=== PATIENT | male | born 1965 | race Caucasian/White ===

== ENCOUNTER 2016-06-25 13:31 | Emergency (ER) | payer MEDICAID ==
[~2016-06-25] VITALS: Ht 170.2 cm; Wt 70.0 kg
[~2016-06-25 13:31] MED LIST: ALBU8.5H5 INH; ASPI-496 PO; LEVO750T26 PO; PRED5TAB PO; TIOT18CA INH
[2016-06-25 13:47] LABS: HEMOGLOBIN 15.7 g/dL (13.7-18.0)
[2016-06-25] MEDS ORDERED: ALBUTEROL/IPRATROPIUM 2.5MG/0.5MG, 3 ML ONE (13:51)
[2016-06-25] MEDS ORDERED: methylPREDNISolone SOD SUCC 125 MG/2 ML ONE (13:56)
[2016-06-25] MEDS ORDERED: methylPREDNISolone SOD SUCC 125 MG/2 ML IVP ONE (14:00)
[2016-06-25] MEDS ORDERED: ALBUTEROL/IPRATROPIUM 2.5MG/0.5MG, 3 ML NPPB ONE (14:00)
[2016-06-25] MEDS ORDERED: SODIUM CHLORIDE FLUSH 10ML SYR IVF ONE (14:00)
[2016-06-25 14:01] LABS: ASPARTATE AMINO TRANSFERASE 21 U/L (15-37); BLOOD UREA NITROGEN 9 mg/dL (7-18)
[2016-06-25 15:28] VITALS: BP 129/73
== END 2016-06-25 15:31 | disposition home or self-care (01) ==
LOC: ED 14:13
DX: J44.1 Chronic obstructive pulmonary disease with (acute) exacerbation (principal); J18.1 Lobar pneumonia, unspecified organism; F17.210 Nicotine dependence, cigarettes, uncomplicated; J45.909 Unspecified asthma, uncomplicated; R42 Dizziness and giddiness
CPT/HCPCS: 36415; 71010; 80053; 85025; 94640; 96374; 99285; J2930; J7620

== ENCOUNTER 2016-10-12 07:33 | Emergency (ER) | payer MEDICAID ==
[~2016-10-12] VITALS: Ht 170.2 cm; Wt 64.5 kg
[2016-10-12] MEDS ORDERED: ALBUTEROL/IPRATROPIUM 2.5MG/0.5MG, 3 ML NPPB ONE (08:00)
[2016-10-12] MEDS ORDERED: ALBUTEROL/IPRATROPIUM 2.5MG/0.5MG, 3 ML ONE (08:22)
[2016-10-12 08:34] VITALS: BP 116/82
== END 2016-10-12 08:44 | disposition home or self-care (01) ==
LOC: ED 08:15
DX: J44.1 Chronic obstructive pulmonary disease with (acute) exacerbation (principal); J45.909 Unspecified asthma, uncomplicated; Z88.0 Allergy status to penicillin
CPT/HCPCS: 93005; 94640; 99283; J7512; J7620

== ENCOUNTER 2017-05-01 09:56 | Emergency (ER) | payer MEDICAID ==
[~2017-05-01] VITALS: Ht 167.6 cm; Wt 73.0 kg
[2017-05-01] MEDS ORDERED: SODIUM CHLORIDE 0.9% 1,000ML IVBOLUS ONE (10:30)
[2017-05-01] MEDS ORDERED: SODIUM CHLORIDE FLUSH 10ML SYR IVF ONE (10:30)
[2017-05-01] MEDS ORDERED: MORPHINE SULFATE 4 MG/ML, 1ML IV PRN (10:30)
[2017-05-01] MEDS ORDERED: DIPH,PERTUSS(ACELL),TET VAC/PF 0.5 ML IM-VACC ONE ×2 (10:30→10:41)
[2017-05-01] MEDS ORDERED: ONDANSETRON 2MG/ML, 2ML IVPush ONE (10:30)
[2017-05-01] MEDS ORDERED: ONDANSETRON 2MG/ML, 2ML ONE (10:41)
[2017-05-01] MEDS ORDERED: MORPHINE SULFATE 4 MG/ML, 1ML ONE (10:41)
[2017-05-01] MEDS ORDERED: VANCOMYCIN PER PHARMACY MC ONE (11:00)
[2017-05-01] MEDS ORDERED: FLUT1AER INH (11:22)
[2017-05-01 11:35] LABS: BASOPHILS # (AUTO) 0.05 x10^3/uL (0-0.1); BASOPHILS % (AUTO) 1 % (0-1); EOSINOPHILS # (AUTO) 0.65 x10^3/uL (0-0.4); EOSINOPHILS % (AUTO) 8 % (1-7); HCT (SEDRATE) 47.2 % (39.2-51.8); LYMPHOCYTES # (AUTO) 1.74 x10^3/uL (1-3.4); LYMPHOCYTES % (AUTO) 21 % (22-44); MD NO; MEAN CORPUSCULAR HEMOGLOBIN 30.3 pg (27.5-34.5); MEAN CORPUSCULAR HGB CONC 32.6 g/dL (33.2-36.2); MEAN CORPUSCULAR VOLUME 92.8 fL (81-97); MONOCYTES # (AUTO) 1.22 x10^3/uL (0.2-0.8); MONOCYTES % (AUTO) 15 % (2-9); NEUTROPHILS # (AUTO) 4.52 x10^3/uL (1.8-6.8); NEUTROPHILS % (AUTO) 55 % (42-75); PLATELET COUNT 350 x10^3/uL (130-400); RED BLOOD COUNT 5.09 x10^6/uL (4.38-5.82); RED CELL DISTRIBUTION WIDTH 13.6 % (9.4-14.8)
[2017-05-01 11:43] LABS: ALBUMIN 3.2 g/dL (3.4-5.0); ANION GAP 6 mmol/L (5-15); CHLORIDE 104 mmol/L (98-107); CREATININE 0.77 mg/dL (0.7-1.3)
[2017-05-01] MEDS ORDERED: VANCOMYCIN 1,500 MG in SODIUM CHLORIDE 0.9% 250 ML IV ONE (12:00)
[2017-05-01 12:01] LABS: CULTURE INDICATED? NO; MICROSCOPIC NOT IND
[2017-05-01 12:09] LABS: SEDIMENTATION RATE 22 mm/hr (0-10)
[2017-05-01 13:23] VITALS: BP 130/80
== END 2017-05-01 13:38 | disposition home or self-care (01) ==
LOC: ED 12:57
DX: L03.116 Cellulitis of left lower limb (principal); J44.9 Chronic obstructive pulmonary disease, unspecified
CPT/HCPCS: 36415; 73630; 76881; 80048; 81003; 82040; 85025; 85651; 87040; 90471; 90715; 96361; 96365; 96366; 96375; 99285; J2405; J3370; J7030; J7050

== ENCOUNTER 2017-05-25 09:28 | Emergency (ER) | payer MEDICAID ==
[~2017-05-25] VITALS: Ht 170.2 cm; Wt 63.0 kg
[~2017-05-25 09:28] MED LIST changes: +FLUT1AER INH
[2017-05-25 09:34] VITALS: BP 130/92
== END 2017-05-25 10:09 | disposition home or self-care (01) ==
LOC: ED 10:00
DX: L03.116 Cellulitis of left lower limb (principal); J44.9 Chronic obstructive pulmonary disease, unspecified
CPT/HCPCS: 99281

== ENCOUNTER 2017-09-16 01:35 | Emergency (ER) | payer MEDICAID ==
[~2017-09-16] VITALS: Ht 170.2 cm; Wt 66.5 kg
[2017-09-16] MEDS ORDERED: ALBUTEROL/IPRATROPIUM 2.5MG/0.5MG, 3 ML ONE ×2 (01:55→02:26)
[2017-09-16] MEDS ORDERED: ALBUTEROL/IPRATROPIUM 2.5MG/0.5MG, 3 ML NPPB SCH (02:00)
[2017-09-16] MEDS ORDERED: ALBUTEROL/IPRATROPIUM 2.5MG/0.5MG, 3 ML NPPB PRN (02:00)
[2017-09-16 04:25] VITALS: BP 111/77
== END 2017-09-16 04:48 | disposition home or self-care (01) ==
LOC: ED 03:36
DX: J45.41 Moderate persistent asthma with (acute) exacerbation (principal); J44.9 Chronic obstructive pulmonary disease, unspecified; Z87.891 Personal history of nicotine dependence
CPT/HCPCS: 71046; 93005; 94640; 99284; J7512; J7620

== ENCOUNTER 2017-10-03 23:07 | Emergency (ER) | payer MEDICAID ==
[~2017-10-03] VITALS: Ht 177.8 cm; Wt 70.0 kg
[2017-10-03] MEDS ORDERED: ZIPRASIDONE 20 MG INJ IM ONE ×2 (23:16→23:30)
[2017-10-04 00:19] LABS: ALBUMIN 3.7 g/dL (3.4-5.0); ANION GAP 9 mmol/L (5-15); CHLORIDE 106 mmol/L (98-107); CREATININE 0.95 mg/dL (0.7-1.3); SALICYLATE LEVEL 4.6 mg/dL (2.8-20.0)
[2017-10-04 00:20] LABS: ACETAMINOPHEN < 2 mcg/mL (10-30)
[2017-10-04 00:58] LABS: BASOPHILS # (AUTO) 0.07 x10^3/uL (0-0.1); BASOPHILS % (AUTO) 1 % (0-1); EOSINOPHILS # (AUTO) 0.01 x10^3/uL (0-0.4); EOSINOPHILS % (AUTO) 0 % (1-7); LYMPHOCYTES # (AUTO) 0.79 x10^3/uL (1-3.4); LYMPHOCYTES % (AUTO) 7 % (22-44); MD SCAN; MEAN CORPUSCULAR HEMOGLOBIN 31.3 pg (27.5-34.5); MEAN CORPUSCULAR VOLUME 91.9 fL (81-97); MEAN PLATELET VOLUME 8.4 fL (7.4-10.4); MONOCYTES # (AUTO) 0.45 x10^3/uL (0.2-0.8); MONOCYTES % (AUTO) 4 % (2-9); NEUTROPHILS # (AUTO) 9.92 x10^3/uL (1.8-6.8); NEUTROPHILS % (AUTO) 88 % (42-75); PLATELET COUNT 387 x10^3/uL (130-400); RED CELL DISTRIBUTION WIDTH 13.6 % (9.4-14.8)
[2017-10-04 03:03] VITALS: BP 138/74
== END 2017-10-04 03:54 | disposition home or self-care (01) ==
LOC: ED 10-04 00:51
DX: F15.20 Other stimulant dependence, uncomplicated (principal); F41.9 Anxiety disorder, unspecified; F19.94 Other psychoactive substance use, unspecified with psychoactive substance-induced mood disorder; J44.9 Chronic obstructive pulmonary disease, unspecified; Z72.9 Problem related to lifestyle, unspecified; Z75.9 Unspecified problem related to medical facilities and other health care; Z63.8 Other specified problems related to primary support group
CPT/HCPCS: 36415; 80048; 80307; 80329; 82040; 85025; 96372; 99284; J3486; G0480